=== PATIENT | female | born 1950 | race Caucasian/White ===

== ENCOUNTER 2021-07-13 16:27 | Inpatient (IN) | payer MEDICARE, MEDICAID ==
[~2021-07-13] VITALS: Ht 152.4 cm; Wt 87.1 kg
[2021-07-13 18:09] LABS: BASOPHILS % 0.5 % (0.0-2.0); EOSINOPHILS % 1.3 % (0.0-5.0); HEMATOCRIT. 36.1 % (36.0-48.0); HEMOGLOBIN. 12.1 g/dL (12.0-16.0); LYMPHOCYTES % 22.8 % (20.0-50.0); MEAN CORPUSCULAR HEMOGLOBIN 30.6 pg (28.0-32.0); MEAN CORPUSCULAR VOLUME 91.5 fL (81.0-99.0); MEAN PLATELET VOLUME 7.1 fl (7.4-10.4); MONOCYTES % 7.9 % (2.0-8.0); NEUTROPHILS % 67.5 % (40.0-76.0); PLATELET 331 x1000/uL (130-400); RED BLOOD CELL COUNT 3.95 mill/uL (4.2-5.4); RED CELL DISTRIBUTION WIDTH 14.7 % (11.6-14.6)
[2021-07-13 18:16] LABS: CHLORIDE 103 mEq/L (98-107)
[2021-07-13] MEDS ORDERED: ONDANSETRON HCL 4MG/2ML INJ IV STA (21:53)
[2021-07-13] MEDS ORDERED: MORPHINE SULFATE 4 MG/ML CPJ (NOT FOR IM USE) IV STA (21:53)
[2021-07-14] MEDS ORDERED: MORPHINE SULFATE 4 MG/ML CPJ (NOT FOR IM USE) IV ONE (02:00)
[2021-07-14 10:53] VITALS: BP 118/58
[2021-07-14] MEDS ORDERED: ACETAMINOPHEN 650MG/20.3ML UDC GT PRN (11:30)
[2021-07-14 12:00] VITALS: BP 118/58
[2021-07-14] MEDS: ACETAMINOPHEN 325MG TABLET PO PRN (12:14)
[2021-07-14] MEDS: ENOXAPARIN 40MG/0.4ML SYR SUBCUT SCH (12:19)
[2021-07-14] MEDS: MORPHINE SULFATE 2 MG/ML CPJ (NOT FOR IM USE) IV PRN ×3 (13:41→22:22)
[2021-07-14 16:00] VITALS: BP 121/60
[2021-07-14] MEDS ORDERED: AMLO10TA80 MT (16:30)
[2021-07-14] MEDS ORDERED: HYDR25TA PO (16:31)
[2021-07-14] MEDS ORDERED: ATOR-2 MT (16:31)
[2021-07-14] MEDS ORDERED: METH-816 MT (16:32)
[2021-07-14 16:58] LABS: CHLORIDE 104 mEq/L (98-107)
[2021-07-14] MEDS ORDERED: *PATIENT'S OWN MEDICATION STORAGE XX SCH (17:00)
[2021-07-14 17:07] LABS: CREATINE KINASE 87 IU/L (26-192); CREATINE KINASE MB FRACTION 2.3 ng/mL (0.5-3.6)
[2021-07-14 19:12] LABS: CLARITY URINE CLEAR (CLEAR); COLOR URINE YELLOW (YELLOW); KETONES URINE NEGATIVE (NEGATIVE); LEUKOCYTE ESTERASE URINE 1+ (NEGATIVE); NITRITE URINE NEGATIVE (NEGATIVE); OCCULT BLOOD URINE NEGATIVE (NEGATIVE); PH URINE 6.5 (4.5-8.0); PROTEIN URINE NEGATIVE (NEGATIVE); SPECIFIC GRAVITY URINE 1.016 (1.005-1.030); UROBILINOGEN URINE 0.2 E.U./dL (0.2-1.0)
[2021-07-14 19:25] LABS: *AMPHETAMINES SCREEN URINE NEGATIVE (NEGATIVE); *BARBITURATES SCREEN URINE NEGATIVE (NEGATIVE); *BENZODIAZEPINES SCREEN URINE NEGATIVE (NEGATIVE); *COCAINE SCREEN URINE NEGATIVE (NEGATIVE); CANNABINOID URINE SCREEN NEGATIVE (NEGATIVE); OPIATES URINE SCREEN PRESUMTIVE POSITIVE (NEGATIVE); PHENCYCLIDINE URINE SCREEN NEGATIVE (NEGATIVE)
[2021-07-14] MEDS ORDERED: NALOXONE HCL 0.4MG/ML VIAL IV PRN (19:30)
[2021-07-14 20:00] VITALS: BP 110/66
[2021-07-14 20:08] LABS: METHADONE URINE SCREEN PRESUMTIVE POSITIVE (NEGATIVE)
[2021-07-14] MEDS: ATORVASTATIN CALCIUM 40MG TABLET PO SCH (22:22)
[2021-07-14 23:22] LABS: CREATINE KINASE MB FRACTION 2.3 ng/mL (0.5-3.6)
[2021-07-15] VITALS: BP_SYST 124; BP_SYST 128; BP_DIAS 62; BP_DIAS 65
[2021-07-15] MEDS: MORPHINE SULFATE 2 MG/ML CPJ (NOT FOR IM USE) IV PRN ×3 (02:55→17:50)
[2021-07-15 04:00] VITALS: BP 111/53
[2021-07-15] MEDS: ACETAMINOPHEN 325MG TABLET PO PRN ×3 (06:28→15:53)
[2021-07-15 07:20] LABS: BASOPHILS % 0.8 % (0.0-2.0); HEMATOCRIT. 32.8 % (36.0-48.0); HEMOGLOBIN. 11.2 g/dL (12.0-16.0); LYMPHOCYTES % 25.7 % (20.0-50.0); MEAN CORPUSCULAR HEMOGLOBIN 31.7 pg (28.0-32.0); MEAN CORPUSCULAR VOLUME 92.4 fL (81.0-99.0); MEAN PLATELET VOLUME 7.4 fl (7.4-10.4); MONOCYTES % 9.9 % (2.0-8.0); NEUTROPHILS % 61.6 % (40.0-76.0); PLATELET 320 x1000/uL (130-400); RED BLOOD CELL COUNT 3.55 mill/uL (4.2-5.4); RED CELL DISTRIBUTION WIDTH 14.5 % (11.6-14.6)
[2021-07-15 07:55] LABS: CHLORIDE 104 mEq/L (98-107)
[2021-07-15 08:00] VITALS: BP 134/71
[2021-07-15 08:10] LABS: T4 FREE 0.66 ng/dL (0.76-1.46)
[2021-07-15] MEDS: AMLODIPINE 10MG TABLET PO SCH (08:51)
[2021-07-15] MEDS: OMEPRAZOLE 20MG CAPSULE EXTENDED RELEASE PO SCH (08:51)
[2021-07-15] MEDS: HYDROCHLOROTHIAZIDE 25MG TABLET PO SCH (08:51)
[2021-07-15] MEDS: METHADONE HCL 10MG TABLET PO SCH (10:27)
[2021-07-15 12:00] VITALS: BP 112/57
[2021-07-15] MEDS: ENOXAPARIN 40MG/0.4ML SYR SUBCUT SCH (15:16)
[2021-07-15 16:00] VITALS: BP 112/52
[2021-07-15] MEDS: HYDROCODONE/ACETAMINOPHEN 5/325MG TABLET PO PRN (16:34)
[2021-07-15 20:00] VITALS: BP 113/66
[2021-07-15] MEDS: ATORVASTATIN CALCIUM 40MG TABLET PO SCH (21:38)
[2021-07-16] VITALS: BP 115/68
[2021-07-16] MEDS: MORPHINE SULFATE 2 MG/ML CPJ (NOT FOR IM USE) IV PRN ×4 (03:38→18:37)
[2021-07-16 04:00] VITALS: BP 121/68
[2021-07-16 08:00] VITALS: BP 125/62
[2021-07-16] MEDS: AMLODIPINE 10MG TABLET PO SCH (09:13)
[2021-07-16] MEDS: HYDROCHLOROTHIAZIDE 25MG TABLET PO SCH (09:13)
[2021-07-16] MEDS: OMEPRAZOLE 20MG CAPSULE EXTENDED RELEASE PO SCH (09:13)
[2021-07-16] MEDS: METHADONE HCL 10MG TABLET PO SCH (09:14)
[2021-07-16] MEDS: ENOXAPARIN 40MG/0.4ML SYR SUBCUT SCH (11:35)
[2021-07-16] MEDS: HYDROCODONE/ACETAMINOPHEN 5/325MG TABLET PO PRN ×2 (11:35→20:03)
[2021-07-16 12:00] VITALS: BP 119/65
[2021-07-16 16:00] VITALS: BP 124/56
[2021-07-16 20:00] VITALS: BP 114/69
[2021-07-16] MEDS: ATORVASTATIN CALCIUM 40MG TABLET PO SCH (21:50)
[2021-07-17] VITALS: BP 98/62
[2021-07-17] MEDS: MORPHINE SULFATE 2 MG/ML CPJ (NOT FOR IM USE) IV PRN ×3 (02:33→21:06)
[2021-07-17 04:00] VITALS: BP 110/55
[2021-07-17] MEDS: HYDROCODONE/ACETAMINOPHEN 5/325MG TABLET PO PRN ×3 (06:04→23:27)
[2021-07-17 08:00] VITALS: BP 119/63
[2021-07-17] MEDS: HYDROCHLOROTHIAZIDE 25MG TABLET PO SCH (09:36)
[2021-07-17] MEDS: AMLODIPINE 10MG TABLET PO SCH (09:36)
[2021-07-17] MEDS: FAMOTIDINE 20MG TABLET PO SCH ×2 (09:37→21:06)
[2021-07-17] MEDS: METHADONE HCL 10MG TABLET PO SCH (09:38)
[2021-07-17 12:00] VITALS: BP 130/74
[2021-07-17] MEDS: ENOXAPARIN 40MG/0.4ML SYR SUBCUT SCH (14:11)
[2021-07-17 16:00] VITALS: BP 126/70
[2021-07-17] MEDS ORDERED: ALPRAZOLAM 0.25 MG TABLET PO PRN (16:45)
[2021-07-17 20:00] VITALS: BP 122/67
[2021-07-17] MEDS: ATORVASTATIN CALCIUM 40MG TABLET PO SCH (21:06)
[2021-07-18] VITALS: BP 118/62
[2021-07-18] MEDS: MORPHINE SULFATE 2 MG/ML CPJ (NOT FOR IM USE) IV PRN ×5 (01:29→21:19)
[2021-07-18] MEDS: HYDROCODONE/ACETAMINOPHEN 5/325MG TABLET PO PRN ×2 (03:31→23:53)
[2021-07-18 04:00] VITALS: BP 105/70
[2021-07-18] MEDS: ALPRAZOLAM 0.25 MG TABLET PO PRN (05:38)
[2021-07-18 08:00] VITALS: BP 119/72
[2021-07-18] MEDS: AMLODIPINE 10MG TABLET PO SCH (09:21)
[2021-07-18] MEDS: HYDROCHLOROTHIAZIDE 25MG TABLET PO SCH (09:21)
[2021-07-18] MEDS: FAMOTIDINE 20MG TABLET PO SCH ×2 (09:21→21:18)
[2021-07-18] MEDS: METHADONE HCL 10MG TABLET PO SCH (09:21)
[2021-07-18] MEDS: ENOXAPARIN 40MG/0.4ML SYR SUBCUT SCH (11:26)
[2021-07-18 12:00] VITALS: BP 116/59
[2021-07-18 16:00] VITALS: BP 120/63
[2021-07-18] MEDS ORDERED: ZOLPIDEM TARTRATE 5MG TABLET PO PRN (19:45)
[2021-07-18 20:00] VITALS: BP 127/68
[2021-07-18] MEDS: ATORVASTATIN CALCIUM 40MG TABLET PO SCH (21:18)
[2021-07-19] VITALS: BP 116/57
[2021-07-19] MEDS: MORPHINE SULFATE 2 MG/ML CPJ (NOT FOR IM USE) IV PRN ×2 (03:49→09:42)
[2021-07-19 04:00] VITALS: BP 122/58
[2021-07-19] MEDS: ALPRAZOLAM 0.25 MG TABLET PO PRN (05:43)
[2021-07-19 08:00] VITALS: BP 120/65
[2021-07-19] MEDS: HYDROCHLOROTHIAZIDE 25MG TABLET PO SCH (08:36)
[2021-07-19] MEDS: AMLODIPINE 10MG TABLET PO SCH (08:36)
[2021-07-19] MEDS: METHADONE HCL 10MG TABLET PO SCH (08:37)
[2021-07-19] MEDS: FAMOTIDINE 20MG TABLET PO SCH (08:37)
[2021-07-19 10:39] VITALS: BP 134/85
[2021-07-19 12:00] VITALS: BP 134/85
[2021-07-19] MEDS: ENOXAPARIN 40MG/0.4ML SYR SUBCUT SCH (12:00)
== END 2021-07-19 12:20 | disposition home health service (06) | DRG 342 ==
LOC: ER 16:27 → MICUSO 21:56 → 7WST 07-14 11:55
PROVIDERS: ADMIT Internal Medicine; ATTEND Internal Medicine
PROC: 2W3SX1Z Immobilization of Right Foot using Splint (ICD-10-PCS; 2021-07-13)
PROC: 4A10X4Z Monitoring of Central Nervous Electrical Activity, External Approach (ICD-10-PCS; principal; 2021-07-17)
DX: S82.61XA Displaced fracture of lateral malleolus of right fibula, initial encounter for closed fracture (principal); E78.00 Pure hypercholesterolemia, unspecified; E87.6 Hypokalemia; I10 Essential (primary) hypertension; J44.9 Chronic obstructive pulmonary disease, unspecified; F11.20 Opioid dependence, uncomplicated; W18.39XA Other fall on same level, initial encounter; E78.5 Hyperlipidemia, unspecified; Z87.891 Personal history of nicotine dependence; Y93.89 Activity, other specified; Y92.89 Other specified places as the place of occurrence of the external cause; Y99.8 Other external cause status; R55 Syncope and collapse
CPT/HCPCS: 36415; 70551; 71045; 73610; 73630; 80048; 80053; 80305; 81003; 82550; 82553; 83735; 83880; 84439; 84443; 84481; 84484; 85025; 85379; 93005; 93306; 93880; 93970; 97116; 97162; 99285; J1650; J2270; J2405

== ENCOUNTER 2022-06-23 04:29 | Emergency (ER) | payer MEDICARE, MEDICAID ==
[~2022-06-23] VITALS: Ht 165.1 cm; Wt 70.0 kg
[~2022-06-23 04:29] MED LIST: AMLO10TA80 MT; ATOR-2 MT; HYDR25TA PO; METH-816 MT
[2022-06-23] MEDS ORDERED: ACETAMINOPHEN WITH CODEINE 300/30MG TABLET PO ONE (05:30)
[2022-06-23 05:59] VITALS: BP 128/74
[2022-06-23] MEDS ORDERED: TOPUD PO (07:00)
== END 2022-06-23 07:33 | disposition home or self-care (01) ==
LOC: ER 04:29
DX: M25.552 Pain in left hip (principal); E78.00 Pure hypercholesterolemia, unspecified; I10 Essential (primary) hypertension
CPT/HCPCS: 73502; 99283; Z7610

== ENCOUNTER 2022-07-29 10:32 | Emergency (ER) | payer MEDICARE, MEDICAID ==
[~2022-07-29] VITALS: Ht 160 cm; Wt 82.0 kg
[~2022-07-29 10:32] MED LIST changes: +TOPUD PO
[2022-07-29] MEDS ORDERED: CYCL10TA21 MT (10:54)
[2022-07-29] MEDS ORDERED: IBUP-2029 MT (10:54)
[2022-07-29 10:57] VITALS: BP 105/57
[2022-07-29] MEDS ORDERED: KETOROLAC 60MG/2ML VIAL IM ONE (11:00)
== END 2022-07-29 11:33 | disposition home or self-care (01) ==
LOC: ER 10:32
DX: M54.50 Low back pain, unspecified (principal); I10 Essential (primary) hypertension; E78.00 Pure hypercholesterolemia, unspecified
CPT/HCPCS: 99283; J1885